=== PATIENT | male | born 1990 ===

== ENCOUNTER → 2023-02-14 10:42 | Outpatient (CLI) | payer OTHER, SELFPAY ==
--- NOTE | 2023-02-14 11:04 | DI.MRI.S_ITS ---
PROCEDURE: MR THORACIC SPINE WO CON INDICATIONS: Pain in thoracic spine TECHNIQUE: Noncontrast sagittal T1 spine echo and T2 fast spin echo, sagittal STIR, and T2 fast spin echo through the thoracic spine. COMPARISON: None. FINDINGS: Image quality: Diagnostic. Alignment and Curvature: There is normal bony alignment. Bone Marrow: Marrow is of normal overall signal. Scattered foci are seen, which are hyperintense on T1-weighted and T2-weighted imaging, which are most consistent with benign vertebral body hemangiomas. No acute vertebral body compression fractures. Minimal, remote anterior wedge deformities can be seen at T12 and L1, with approximately 10% loss height anteriorly. No acute features are seen. Spinal Cord: Visualized spinal cord is normal in size and signal. Paraspinous Soft Tissues: No paravertebral masses. Miscellaneous: On axial images, central canal and foramina appear widely patent at all scanned levels. IMPRESSION: No significant abnormality is seen to explain the patient's presenting history of thoracic back pain. Minimal remote T12 and L1 anterior wedge deformities can be seen. Dictated by: Lucius Aviles M.D. on 02/14/2023 at 11:26 Approved by: Lucius Aviles M.D. on 02/14/2023 at 11:27
== END ==
PROVIDERS: PCP Preventive Medicine Aerospace Medicine; Referring Provider Preventive Medicine Aerospace Medicine; Visit Provider Preventive Medicine Aerospace Medicine
DX: M54.6 Pain in thoracic spine (principal)
CPT/HCPCS: 72146